=== PATIENT | male | born 1960 | race Two or more races ===

== ENCOUNTER 2017-09-24 16:03 | Emergency (ER) | payer OTHER ==
[2017-09-24 16:19] VITALS: BP 162/95; PULSE 72; TEMP 97; BMI 36.3
--- NOTE | 2017-09-24 16:21 | PDOC ---
Rapid Medical Evaluation Chief Complaint: Pain Time Seen by Provider: 09/24/17 16:16 Medical Evaluation: Allergies Allergy/AdvReac Type Severity Reaction Status Date / Time No Known Allergies Allergy Verified 03/28/16 15:08 09/24/17 16:16 The patient presents with a chief complaint of: Lower abdominal pain. Currently being treated for UTI with levoquin. On day 4 of treatment. States he usualy gets levoquin and he feels better on the second day. Admits frequency and back pain. no fevers chills, denies nausea, vomiting, hematuria, dysuria. I have performed a brief in-person evaluation of this patient; Pertinent physical exam findings: Suprapubic tenderness, No CVA tenderness I have ordered the following: CBC, CMP, UA, UC, The patient will proceed to the ED for further evaluation.
[2017-09-24 17:04] LABS: BASO % 0.3 % (0-2.0); EOS # 0.2 #; EOS % 3.2 % (0-4.5); MCH 29.3 pg (25.7-33.7); MCHC 33.3 g/dl (32.0-35.9); MEAN CELL VOLUME 88.1 fl (80-96); MEAN PLT VOLUME 8.7 fl (7.5-11.1); MONO # 0.5 #; NEUT # 3.9 #; NEUT % 58.9 % (42.8-82.8); PLATELET COUNT 289 K/MM3 (134-434); WHITE BLOOD COUNT 6.6 K/mm3 (4.0-10.0)
--- NOTE | 2017-09-24 17:19 | PDOC ---
History of Present Illness - History of Present Illness Initial Comments: 09/24/17 17:46 The patient is a 57 year old male, with a significant past medical history of hypertension, hyperlipidemia, and prostate surgery x2 (last surgery in 2011 which was 5 years after the first) who presents to the emergency department with suprapubic pain and increased urinary frequency at night despite taking levaquin for 4 days. The patient states he called Dr. Roth 4 days ago regarding his current symptoms, was prescribed levaquin, and state his symptoms have been increasing since last night. He denies chest pain, shortness of breath, headache and dizziness. He denies fever, chills, nausea, vomit, diarrhea and constipation. He denies dysuria, urgency and hematuria. Allergies: NKDA urologist: Dr. Roth <Dora Hoskins - Last Filed: 09/24/17 18:41> <Fabricio Serna - Last Filed: 09/25/17 16:16> - General Chief Complaint: Pain Stated Complaint: ABD PAIN Time Seen by Provider: 09/24/17 16:16 Past History <Dora Hoskins - Last Filed: 09/24/17 18:41> - Past Medical History COPD: No HTN: Yes Hypercholesterolemia: Yes Other medical history: enlarged prostate - Surgical History Appendectomy: Yes - Immunization History Immunization Up to Date: Yes - Suicide/Smoking/Psychosocial Hx Smoking Status: No Smoking History: Never smoked Have you smoked in the past 12 months: No Number of Cigarettes Smoked Daily: 0 Hx Alcohol Use: No Drug/Substance Use Hx: No Substance Use Type: None Hx Substance Use Treatment: No <Fabricio Serna - Last Filed: 09/25/17 16:16> - Past Medical History Allergies/Adverse Reactions: Allergies Allergy/AdvReac Type Severity Reaction Status Date / Time No Known Allergies Allergy Verified 09/24/17 16:19 Home Medications: Ambulatory Orders Amlodipine Besylate [Norvasc -] 10 mg PO DAILY #30 tablet 04/19/14 Aspirin [ASA -] 81 mg PO DAILY #30 tab.chew 04/19/14 Atorvastatin Ca [Lipitor -] 40 mg PO HS #30 tablet 04/19/14 Labetalol HCl [Normodyne -] 100 mg PO BID #60 tablet 04/19/14 Review of Systems - Review of Systems Able to Perform ROS?: Yes Comments:: 09/24/17 17:50 GENERAL/CONSTITUTIONAL: No fever or chills. No weakness. HEAD, EYES, EARS, NOSE AND THROAT: No change in vision. No ear pain or discharge. No sore throat. CARDIOVASCULAR: No chest pain or shortness of breath. RESPIRATORY: No cough, wheezing, or hemoptysis. GASTROINTESTINAL: (+) suprapubic pain. No nausea, vomiting, diarrhea or constipation. GENITOURINARY:(+) increased frequency at night, No dysuria, or change in urination. MUSCULOSKELETAL: No joint or muscle swelling or pain. No neck or back pain. SKIN: No rash NEUROLOGIC: No headache, vertigo, loss of consciousness, or change in strength/ sensation. ENDOCRINE: No increased thirst. No abnormal weight change. HEMATOLOGIC/LYMPHATIC: No anemia, easy bleeding, or history of blood clots. ALLERGIC/IMMUNOLOGIC: No hives or skin allergy. <Dora Hoskins - Last Filed: 09/24/17 18:41> *Physical Exam - Vital Signs Last Vital Signs Temp Pulse Resp BP Pulse Ox 97 F L 72 18 162/95 98 09/24/17 16:17 09/24/17 16:17 09/24/17 16:17 09/24/17 16:17 09/24/17 16:17 - Physical Exam Comments: 09/24/17 17:50 GENERAL: Awake, alert, and fully oriented, in no acute distress HEAD: No signs of trauma EYES: PERRLA, EOMI, sclera anicteric, conjunctiva clear ENT: Auricles normal inspection, hearing grossly normal, nares patent, oropharynx clear without exudates. Moist mucosa NECK: Normal ROM, supple, no lymphadenopathy, JVD, or masses LUNGS: Breath sounds equal, clear to auscultation bilaterally. No wheezes, and no crackles HEART: Regular rate and rhythm, normal S1 and S2, no murmurs, rubs or gallops ABDOMEN: Soft, nontender, normoactive bowel sounds. No guarding, no rebound. No masses EXTREMITIES: Normal range of motion, no edema. No clubbing or cyanosis. No cords, erythema, or tenderness NEUROLOGICAL: Cranial nerves II through XII grossly intact. Normal speech, normal gait SKIN: Warm, Dry, normal turgor, no rashes or lesions noted. <Dora Hoskins - Last Filed: 09/24/17 18:41> - Vital Signs Last Vital Signs Temp Pulse Resp BP Pulse Ox 97 F L 72 18 162/95 98 09/24/17 16:17 09/24/17 16:17 09/24/17 16:17 09/24/17 16:17 09/24/17 16:17 <Fabricio Serna - Last Filed: 09/25/17 16:16> ED Treatment Course - LABORATORY CBC & Chemistry Diagram: 09/24/17 16:25 09/24/17 16:25 <Dora Hoskins - Last Filed: 09/24/17 18:41> - LABORATORY CBC & Chemistry Diagram: 09/24/17 16:25 09/24/17 16:25 <Fabricio Serna - Last Filed: 09/25/17 16:16> *DC/Admit/Observation/Transfer - Attestations Scribe Attestion: 09/24/17 17:50 Documentation prepared by Dora Hoskins, acting as biomedical equipment support specialist for Fabricio Serna DO <Dora Hoskins - Last Filed: 09/24/17 18:41> - Attestations Physician Attestion: 09/24/17 17:19 I, Dr. Fabricio Serna, attest that this document has been prepared under my direction and personally reviewed by me in its entirety. I further attest, that it accurately reflects all work, treatment, procedures and medical decision -making performed by me. <Fabricio Serna - Last Filed: 09/25/17 16:16> Diagnosis at time of Disposition: BPH (benign prostatic hyperplasia) - Discharge Dispostion Disposition: HOME Condition at time of disposition: Stable - Referrals Referrals: Odalis Peacock MD [Staff Physician] - - Patient Instructions Printed Discharge Instructions: DI for Benign Prostatic Hyperplasia Additional Instructions: Please follow up with your urologist as soon as possible
[2017-09-24 17:34] LABS: ALBUMIN 3.4 g/dl (3.4-5.0); ALK PHOS 86 U/L (45-117); ANION GAP 10 (8-16); BILIRUBIN,TOTAL 0.5 mg/dL (0.2-1.0); CALCIUM 8.8 mg/dL (8.5-10.1); CO2 25 mmol/L (21-32); CREATININE 1.1 mg/dL (0.7-1.3); GLUCOSE,RANDOM 169 mg/dL (74-106); SGPT/ALT 279 U/L (12-78); TOT PROT 7.2 g/dl (6.4-8.2)
[2017-09-24 18:00] LABS: SGOT/AST 227 U/L (15-37)
[2017-09-24 18:17] LABS: URINE APPEARANCE CLEAR; URINE BILIRUBIN NEGATIVE (NEGATIVE); URINE BLOOD NEGATIVE (NEGATIVE); URINE COLOR YELLOW; URINE GLUCOSE (UA) 1+ (NEGATIVE); URINE KETONE NEGATIVE (NEGATIVE); URINE LEUK ESTERASE NEGATIVE (NEGATIVE); URINE NITRITE NEGATIVE (NEGATIVE); URINE UROBILINOGEN NEGATIVE mg/dL (0.2-1.0)
[2017-09-24 20:06] LABS: URINE PROTEIN 1+ (NEGATIVE)
[2017-09-24] MEDS ORDERED: traMADol HCL 50 MG TABLET PO ONE (21:07)
--- NOTE | 2017-09-24 21:10 | PDOC ---
*Physical Exam - Vital Signs Last Vital Signs Temp Pulse Resp BP Pulse Ox 97 F L 72 18 162/95 98 09/24/17 16:17 09/24/17 16:17 09/24/17 16:17 09/24/17 16:17 09/24/17 16:17 ED Treatment Course - LABORATORY CBC & Chemistry Diagram: 09/24/17 16:25 09/24/17 16:25 - ADDITIONAL ORDERS Additional order review: Laboratory Results 09/24/17 09/24/17 16:25 16:20 Sodium 138 Potassium 4.1 Chloride 103 Carbon Dioxide 25 Anion Gap 10 BUN 24 H Creatinine 1.1 D Creat Clearance w eGFR > 60 Random Glucose 169 H D Calcium 8.8 Total Bilirubin 0.5 D AST 227 H D ALT 279 H D Alkaline Phosphatase 86 D Total Protein 7.2 Albumin 3.4 Urine Color Yellow Urine Appearance Clear Urine pH 5.0 D Ur Specific [place] 1.024 Urine Protein 1+ H Urine Glucose (UA) 1+ H Urine Ketones Negative Urine Blood Negative Urine Nitrite Negative Urine Bilirubin Negative Urine Urobilinogen Negative 09/24/17 16:25 RBC 5.39 MCV 88.1 MCHC 33.3 RDW 14.0 MPV 8.7 Neutrophils % 58.9 D Lymphocytes % 29.7 D Monocytes % 7.9 Eosinophils % 3.2 D Basophils % 0.3 *DC/Admit/Observation/Transfer Diagnosis at time of Disposition: BPH (benign prostatic hyperplasia) - Discharge Dispostion Disposition: HOME Condition at time of disposition: Stable Admit: No - Prescriptions Prescriptions: Tramadol HCl [Ultram -] 50 mg PO Q8H #30 tablet MDD 4 - Referrals Referrals: Odalis Peacock MD [Staff Physician] - - Patient Instructions Printed Discharge Instructions: DI for Benign Prostatic Hyperplasia Additional Instructions: Please follow up with your urologist as soon as possible - Post Discharge Activity
[2017-09-24] MEDS ORDERED: traMADol HCL 50 MG TABLET ONE (21:19)
[2017-09-24 21:34] LABS: URINE MUCUS RARE; URINE RBC 1 /hpf (0-3); URINE WBC 1 /hpf (3-5)
[2017-09-24 23:23] LABS: URINE LEUK ESTERASE Negative (NEGATIVE)
== END 2017-09-24 21:23 | disposition home or self-care (01) ==
LOC: JER 16:03
DX: N40.0 Benign prostatic hyperplasia without lower urinary tract symptoms (principal); I10 Essential (primary) hypertension; E78.5 Hyperlipidemia, unspecified
CPT/HCPCS: 36415; 80053; 81003; 81015; 85025; 87086; 99282-25

== ENCOUNTER 2018-02-23 07:12 | Day surgery (SDC) | payer OTHER ==
[2018-02-23 07:45] VITALS: BMI 36.3
[2018-02-23] MEDS ORDERED: MIDAZOLAM HCL 5 MG/5 ML - 5 ML VIAL IVPB ONE (08:29)
[2018-02-23 09:17] VITALS: TEMP 97.8
[2018-02-23 15:52] VITALS: BP 150/98; PULSE 88
--- NOTE | 2018-04-12 16:39 | PATH ---
Surgical Pathology Report Patient Name: LAURI JAMESON [facility]. Rec. #: [id number] /Age/Gender: 1960 (Age: 57) / M Account: [id number] Location: U-ENDOSCOPY Taken: 02/23/2018 Received: 02/23/2018 Reported: 03/02/2018 Physicians: Mo Mcgee M.D. 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 TRICHROME STAIN SHOWS PATCHY PERIVENULAR AND PERICELLULAR FIBROSIS. IRON STAIN IS NEGATIVE FOR SIDEROSIS, SEE COMMENT. PAS AND PAS WITH DIASTASE STAINS ARE NEGATIVE FOR ALPHA-1 ANTITRYPSIN GLOBULES. NEGATIVE FOR CHRONIC HEPATITIS, CHOLESTASIS, CHOLANGITIS/BILE DUCT INJURY, GRANULOMAS, OR MALIGNANCY. COMMENT: Steatohepatitis may be associated with diabetes mellitus, metabolic symptoms, obesity medications, alcohol use, etc. Clinical correlation recommended. Although the iron stain appears negative for siderosis, no control was received for evaluation. The possibility of a false negative stain cannot be excluded. Reticulin stain is non-contributory. The reticulum control tissues stained appropriately, but the stain failed on the actual specimen tissue. Note: The above diagnosis reflects Dr. Frances Cobian's opinions, from Department of Pathology, [place] [address]. The iron stain on the liver was evaluated with proper control. It is negative for siderosis. Electronically Signed Rashmi Sinha M.D. Addendum Reported: 03/06/2018 Addendum Diagnosis Fibrosis grade 1 (Brunt Criteria). Reticulum stain was repeated and showed an intact sinusoidal architecture. Rashmi Sinha M.D. Gross Description Received in formalin labeled "liver biopsy," are 3 thompson, cylindrical portions of soft tissue ranging from 0.6-1.8 cm in length and averaging 0.1 cm in diameter. The specimens are submitted in toto in one cassette. 02/23/201802/23/2018
== END 2018-02-23 12:10 | disposition home or self-care (01) ==
LOC: JASU-ENDO 07:12
PROVIDERS: ATTEND Internal Medicine Gastroenterology
PROC: 0FB13ZX Excision of Right Lobe Liver, Percutaneous Approach, Diagnostic (ICD-10-PCS; principal; 2018-02-23 08:00)
DX: K75.81 Nonalcoholic steatohepatitis (NASH) (principal)
CPT/HCPCS: 76942-TC; 82962; 88305-TC; 88313-TC

== ENCOUNTER 2021-07-12 06:28 | Observation (INO) | payer BC, OTHER ==
[2021-07-12 06:53] VITALS: BMI 32.1
[2021-07-12 09:36] LABS: BASO % 0.4 % (0-2.0); EOS % 3.8 % (0-4.5); HEMATOCRIT 43.9 % (35.4-49); HEMOGLOBIN 14.5 GM/dL (11.7-16.9); LYMPH % 33.4 % (8-40); MCH 28.5 pg (25.7-33.7); MCHC 33.1 g/dl (32.0-35.9); MEAN CELL VOLUME 86.2 fl (80-96); MEAN PLT VOLUME 8.5 fl (7.5-11.1); MONO % 7.8 % (3.8-10.2); NEUT % 54.6 % (42.8-82.8); PLATELET COUNT 216 10^3/uL (134-434); RDW 13.9 % (11.9-15.9); WHITE BLOOD COUNT 7.6 K/mm3 (4.0-10.0)
[2021-07-12 09:55] LABS: CHLORIDE 106 mmol/L (98-107); SODIUM 140 mmol/L (136-145)
[2021-07-12 09:58] LABS: ALBUMIN 3.4 g/dl (3.4-5.0); ANION GAP 8 MMOL/L (8-16); CALCIUM 8.4 mg/dL (8.5-10.1); CO2 26 mmol/L (21-32)
[2021-07-12 09:59] LABS: BLOOD UREA NITROGEN 24.3 mg/dL (7-18)
[2021-07-12 10:00] LABS: GLUCOSE,RANDOM 80 mg/dL (74-106)
[2021-07-12 10:02] LABS: CREATININE 1.1 mg/dL (0.55-1.3); SGOT/AST 41 U/L (15-37); SGPT/ALT 70 U/L (13-61)
[2021-07-12 10:03] LABS: BILIRUBIN,TOTAL 0.6 mg/dL (0.2-1)
[2021-07-12 10:04] LABS: ALK PHOS 64 U/L (45-117)
[2021-07-12] MEDS ORDERED: SODIUM CHLORIDE 500 ML IV STA (13:47)
[2021-07-12] MEDS ORDERED: METHYL SALICYLATE/MENTHOL OINT 30 GM TUBE TP SCH (16:38)
[2021-07-12 17:45] VITALS: BP 137/93; PULSE 67; TEMP 97.6
[2021-07-13] MEDS ORDERED: amLODIPine BESYLATE 10 MG TABLET (FP) PO SCH (10:00)
[2021-07-13] MEDS ORDERED: LISINOPRIL 20 MG TABLET PO SCH (10:00)
[2021-07-13] MEDS ORDERED: ASPIRIN COATED 81 MG TABLET.EC PO SCH (10:00)
[2021-07-13] MEDS ORDERED: PATIENT'S OWN MEDICATION (NON-FORMULARY) (Amlodipine Besylate/Benazepril [Lotrel 10-20 Mg PO SCH (10:00)
[2021-07-13] MEDS ORDERED: ENOXAPARIN NA (PORCINE) 40 MG/0.4 ML DISP.SYRIN SQ SCH (10:00)
== END 2021-07-12 19:00 | disposition home or self-care (01) ==
LOC: JER 06:28 → JERBED 12:07 → UNDOADMOB 12:07 → INTOOBSV 13:44 → OBSVTOIN 13:44 → JERBED 14:45
PROVIDERS: ADMIT Internal Medicine; ATTEND Internal Medicine
PROC: 3E0337Z Introduction of Electrolytic and Water Balance Substance into Peripheral Vein, Percutaneous Approach (ICD-10-PCS; principal; 2021-07-12)
DX: R07.89 Other chest pain (principal); E11.9 Type 2 diabetes mellitus without complications; I10 Essential (primary) hypertension; E66.9 Obesity, unspecified; Z68.32 Body mass index [BMI] 32.0-32.9, adult; E78.5 Hyperlipidemia, unspecified; N40.0 Benign prostatic hyperplasia without lower urinary tract symptoms; M94.0 Chondrocostal junction syndrome [Tietze]; N41.9 Inflammatory disease of prostate, unspecified
CPT/HCPCS: 36415; 71046-TC-FY; 71275-TC; 80053; 82550; 82553; 84484; 85025; 86038; 93005; 93010; 93306-TC; 99285-25; C9803; G0378; Q9967; U0003; U0005

== ENCOUNTER 2021-12-21 12:16 | Emergency (ER) | payer BC, OTHER ==
[2021-12-21 12:33] VITALS: TEMP 98; BMI 33.6
[2021-12-21] MEDS ORDERED: amLODIPine BESYLATE 10 MG TABLET (FP) PO ONE (12:53)
[2021-12-21] MEDS ORDERED: amLODIPine BESYLATE 10 MG TABLET (FP) ONE (12:59)
[2021-12-21] MEDS ORDERED: ACETAMINOPHEN 500 MG TABLET (FP) PO ONE (12:59)
[2021-12-21] MEDS ORDERED: ACETAMINOPHEN 325 MG TABLET (FP) ONE (13:00)
[2021-12-21 13:59] VITALS: BP 172/97; PULSE 71
[2021-12-21 14:11] LABS: BASO % 0.4 % (0-2.0); EOS % 2.1 % (0-4.5); HEMATOCRIT 42.5 % (35.4-49); HEMOGLOBIN 13.9 GM/dL (11.7-16.9); LYMPH % 42.8 % (8-40); MCH 28.2 pg (25.7-33.7); MCHC 32.7 g/dl (32.0-35.9); MEAN CELL VOLUME 86.2 fl (80-96); MEAN PLT VOLUME 8.5 fl (7.5-11.1); MONO % 8.1 % (3.8-10.2); NEUT % 46.6 % (42.8-82.8); PLATELET COUNT 266 10^3/uL (134-434); RBC 4.93 M/mm3 (4.00-5.60); RDW 13.1 % (11.9-15.9); WHITE BLOOD COUNT 5.8 K/mm3 (4.0-10.0)
[2021-12-21 14:16] LABS: EPI CELLS 1 /uL (0-25.1); HYALINE CASTS 0 /uL (0-3.1); URINE APPEARANCE CLEAR; URINE BACTERIA 4 /uL (0-1359); URINE BILIRUBIN NEGATIVE (NEGATIVE); URINE COLOR YELLOW; URINE GLUCOSE (UA) NEGATIVE (NEGATIVE); URINE KETONE NEGATIVE (NEGATIVE); URINE LEUK ESTERASE NEGATIVE (NEGATIVE); URINE NITRITE NEGATIVE (NEGATIVE); URINE PROTEIN 2+ (NEGATIVE); URINE RBC 6 /uL (0-23.9); URINE UROBILINOGEN 0.2 mg/dL (0.2-1.0); URINE WBC 3 /uL (0-25.8)
[2021-12-21 14:30] LABS: ALBUMIN 3.7 g/dl (3.4-5.0); CALCIUM 9.2 mg/dL (8.5-10.1)
[2021-12-21 14:34] LABS: CREATININE 1.1 mg/dL (0.55-1.3)
[2021-12-21 14:35] LABS: BILIRUBIN,TOTAL 0.3 mg/dL (0.2-1); TOT PROT 7.2 g/dl (6.4-8.2)
== END 2021-12-21 15:24 | disposition home or self-care (01) ==
LOC: JER 12:16
DX: R30.0 Dysuria (principal); R31.9 Hematuria, unspecified
CPT/HCPCS: 36415; 80053; 81003; 84153; 85025; 87086; 99283-25

== ENCOUNTER 2022-07-10 04:09 | Day surgery (SDC) | payer BC, OTHER ==
[2022-07-08 15:11] VITALS: BMI 34.0
[2022-07-10] MEDS ORDERED: MIDAZOLAM HCL 2 MG/2 ML SINGLE DOSE VIAL ONE (12:17)
[2022-07-10] MEDS ORDERED: LIDOCAINE HCL 2% JELLY 10 ML CARTRIDGE ONE (12:33)
[2022-07-10] MEDS ORDERED: ceFAZolin SODIUM 1 GM VIAL IVPB ONE (12:37)
[2022-07-10] MEDS ORDERED: PROPOFOL 20 ML ONE (12:45)
[2022-07-10 13:58] VITALS: RESP 18
[2022-07-10 15:56] VITALS: TEMP 98.2
[2022-07-10 16:02] VITALS: BP 146/98; PULSE 82
== END 2022-07-10 16:00 | disposition home or self-care (01) ==
LOC: JASU-SURG 04:09
PROVIDERS: ATTEND Urology
PROC: 0TCB8ZZ Extirpation of Matter from Bladder, Via Natural or Artificial Opening Endoscopic (ICD-10-PCS; principal; 2022-07-10 13:00)
DX: N21.1 Calculus in urethra (principal); N21.0 Calculus in bladder; I10 Essential (primary) hypertension; E11.9 Type 2 diabetes mellitus without complications
CPT/HCPCS: 82962; 94760

== ENCOUNTER 2023-01-28 09:37 | Emergency (ER) | payer BC, OTHER ==
[2023-01-28 09:43] VITALS: TEMP 97.9; BMI 33.9
[2023-01-28] MEDS ORDERED: FAMOTIDINE 20 MG/50 ML IVPB 20 MG/50 ML MG IVPB ONE ×2 (10:27→10:40)
[2023-01-28] MEDS ORDERED: ACETAMINOPHEN 1000 MG/100 ML BAG IVPB ONE (10:27)
[2023-01-28] MEDS ORDERED: ONDANSETRON 4 MG/2 ML VIAL IVPUSH ONE (10:27)
[2023-01-28] MEDS ORDERED: SODIUM CHLORIDE 1,000 ML IV STA (10:27)
[2023-01-28] MEDS ORDERED: ONDANSETRON 4 MG/2 ML VIAL ONE (10:40)
[2023-01-28] MEDS ORDERED: ACETAMINOPHEN INJECTION 100 ML IVPB ONE (10:40)
[2023-01-28 11:02] LABS: BASO % 0.3 % (0-2.0); EOS % 0.4 % (0-4.5); HEMATOCRIT 47.6 % (35.4-49); HEMOGLOBIN 16.5 GM/dL (11.7-16.9); MCH 29.5 pg (25.7-33.7); MCHC 34.7 g/dl (32.0-35.9); MEAN CELL VOLUME 85.1 fl (80-96); MEAN PLT VOLUME 8.5 fl (7.5-11.1); MONO % 5.8 % (3.8-10.2); NEUT % 89.5 % (42.8-82.8); PLATELET COUNT 314 10^3/uL (134-434); RDW 13.8 % (11.9-15.9); WHITE BLOOD COUNT 18.9 K/mm3 (4.0-10.0)
[2023-01-28 11:23] LABS: POTASSIUM 3.7 mmol/L (3.5-5.1)
[2023-01-28 11:26] LABS: CALCIUM 9.9 mg/dL (8.5-10.1)
[2023-01-28 11:27] LABS: ALBUMIN 4.1 g/dl (3.4-5.0); BLOOD UREA NITROGEN 21.5 mg/dL (7-18)
[2023-01-28 11:30] LABS: BILIRUBIN,TOTAL 0.8 mg/dL (0.2-1)
[2023-01-28 11:31] LABS: CREATININE 1.6 mg/dL (0.55-1.3)
[2023-01-28 12:56] VITALS: PULSE 89
[2023-01-28 16:09] VITALS: BP 142/95; RESP 16
[2023-01-28 17:25] LABS: BASO % 0.2 % (0-2.0); EOS % 0.3 % (0-4.5); HEMATOCRIT 44.5 % (35.4-49); HEMOGLOBIN 14.9 GM/dL (11.7-16.9); LYMPH % 12.6 % (8-40); MCH 28.2 pg (25.7-33.7); MCHC 33.4 g/dl (32.0-35.9); MEAN CELL VOLUME 84.6 fl (80-96); MEAN PLT VOLUME 8.4 fl (7.5-11.1); MONO % 5.6 % (3.8-10.2); NEUT % 81.3 % (42.8-82.8); PLATELET COUNT 334 10^3/uL (134-434); RBC 5.26 M/mm3 (4.00-5.60); RDW 13.8 % (11.9-15.9); WHITE BLOOD COUNT 14.1 K/mm3 (4.0-10.0)
== END 2023-01-28 18:36 | disposition home or self-care (01) ==
LOC: JER 09:37
PROC: 3E033GC Introduction of Other Therapeutic Substance into Peripheral Vein, Percutaneous Approach (ICD-10-PCS; principal; 2023-01-28)
PROC: 3E033GC Introduction of Other Therapeutic Substance into Peripheral Vein, Percutaneous Approach (ICD-10-PCS; 2023-01-28)
PROC: 3E033GC Introduction of Other Therapeutic Substance into Peripheral Vein, Percutaneous Approach (ICD-10-PCS; 2023-01-28)
DX: R11.2 Nausea with vomiting, unspecified (principal); R19.7 Diarrhea, unspecified; R10.84 Generalized abdominal pain; Z20.822 Contact with and (suspected) exposure to COVID-19
CPT/HCPCS: 36415; 74176-TC; 76705-TC; 80053; 83690; 84484; 85025; 93005; 93010; 99285-25; C9803-CS; U0003; U0005

== ENCOUNTER 2024-03-01 20:51 | Emergency (ER) | payer BC, OTHER ==
[2024-03-01 20:55] VITALS: BMI 33.3
[2024-03-01 22:23] LABS: BASO % 0.4 % (0-2.0); EOS % 5.3 % (0-4.5); HEMATOCRIT 40.4 % (35.4-49); HEMOGLOBIN 13.8 GM/dL (11.7-16.9); LYMPH % 33.7 % (8-40); MCH 29.1 pg (25.7-33.7); MCHC 34.2 g/dl (32.0-35.9); MEAN PLT VOLUME 7.8 fl (7.5-11.1); MONO % 9.9 % (3.8-10.2); NEUT % 50.7 % (42.8-82.8); PLATELET COUNT 378 10^3/uL (134-434); RBC 4.75 M/mm3 (4.00-5.60); RDW 13.7 % (11.9-15.9); WHITE BLOOD COUNT 7.4 K/mm3 (4.0-10.0)
[2024-03-01 22:24] LABS: EPI CELLS 2 /uL (0-25.1); HYALINE CASTS 0 /uL (0-3.1); PH,URINE 5.5 (5.0-8.0); URINE APPEARANCE CLOUDY; URINE BACTERIA 5 /uL (0-1359); URINE BILIRUBIN NEGATIVE (NEGATIVE); URINE COLOR ORANGE; URINE GLUCOSE (UA) 2+ (NEGATIVE); URINE KETONE TRACE (NEGATIVE); URINE LEUK ESTERASE TRACE (NEGATIVE); URINE NITRITE NEGATIVE (NEGATIVE); URINE PROTEIN 2+ (NEGATIVE); URINE RBC 18589 /uL (0-23.9); URINE UROBILINOGEN 0.2 mg/dL (0.2-1.0); URINE WBC 33 /uL (0-25.8)
[2024-03-01 22:38] LABS: INR 0.94 (0.83-1.09); PROTHROMBIN TIME (PATIENT) 10.8 SEC (9.7-13.0)
[2024-03-01 22:41] LABS: ACTIVATED PTT 32.4 SECONDS (25.2-36.5); POTASSIUM 4.1 mmol/L (3.5-5.1)
[2024-03-01 22:43] LABS: ALBUMIN 3.7 g/dl (3.4-5.0); CALCIUM 9.2 mg/dL (8.5-10.1); MAGNESIUM 2.1 mg/dL (1.8-2.4)
[2024-03-01 22:44] LABS: BLOOD UREA NITROGEN 31.1 mg/dL (7-18)
[2024-03-01 22:46] LABS: CREATININE 1.5 mg/dL (0.55-1.3)
[2024-03-01] MEDS ORDERED: PIPERACILLIN/TAZOB 4.5 GM 4.5 GM/100 ML BAG IVPB ONE (22:46)
[2024-03-01 22:48] LABS: BILIRUBIN,TOTAL 0.4 mg/dL (0.2-1); TOT PROT 7.2 g/dl (6.4-8.2)
[2024-03-01] MEDS ORDERED: ACETAMINOPHEN INJECTION 100 ML IVPB ONE (22:51)
[2024-03-01] MEDS: ACETAMINOPHEN 1000 MG/100 ML BAG IVPB ONE (22:56)
[2024-03-01 23:40] LABS: HIV INTERPRETATION NEGATIVE (NEGATIVE)
[2024-03-02 02:40] VITALS: BP 142/81; PULSE 79; RESP 17; TEMP 98.1
== END 2024-03-02 02:40 | disposition home or self-care (01) ==
LOC: JER 20:51
PROC: 3E033NZ Introduction of Analgesics, Hypnotics, Sedatives into Peripheral Vein, Percutaneous Approach (ICD-10-PCS; principal; 2024-03-01)
DX: R31.9 Hematuria, unspecified (principal); R10.9 Unspecified abdominal pain; R07.89 Other chest pain; R06.02 Shortness of breath; N50.819 Testicular pain, unspecified; Z20.822 Contact with and (suspected) exposure to COVID-19
CPT/HCPCS: 0241U-QW; 36415; 71046-TC-FY; 76856-TC; 80053; 81003; 83735; 84484; 85025; 85610; 85730; 87086; 87389; 93005; 93010; 99285-25; J0131

== ENCOUNTER 2025-03-01 11:41 | Emergency (ER) | payer BC, OTHER ==
[2025-03-01 11:54] VITALS: TEMP 99.9; BMI 32.8
[2025-03-01] MEDS ORDERED: ASPIRIN 81 MG CHEWABLE TABLETS ONE (12:35)
[2025-03-01 12:42] LABS: HEMATOCRIT 44.4 % (40.1-51.0); HEMOGLOBIN 14.3 g/dL (13.7-17.5); MCHC 32.2 g/dl (32.3-36.5); MEAN CELL VOLUME 85.2 fl (79.0-92.2); MEAN PLT VOLUME 9.8 fl (9.4-12.4); PLATELET COUNT 352 x10^3/uL (163-337); RDW 13.4 % (12.2-16.4)
[2025-03-01] MEDS: SODIUM CHLORIDE 1,000 ML IV STA (12:42)
[2025-03-01] MEDS: ASPIRIN 81 MG CHEWABLE TABLETS PO ONE (12:42)
[2025-03-01 12:52] LABS: PROTHROMBIN TIME (PATIENT) 10.9 SEC (9.7-13.0)
[2025-03-01 13:07] LABS: POTASSIUM 4.3 mmol/L (3.5-5.1)
[2025-03-01 13:10] LABS: ALBUMIN 3.8 g/dl (3.4-5.0); BLOOD UREA NITROGEN 17.2 mg/dL (7-18); CALCIUM 9.8 mg/dL (8.5-10.1); MAGNESIUM 1.9 mg/dL (1.8-2.4)
[2025-03-01 13:13] LABS: CREATININE 1.3 mg/dL (0.55-1.3)
[2025-03-01 13:14] LABS: BILIRUBIN,TOTAL 0.5 mg/dL (0.2-1)
[2025-03-01 13:15] LABS: TOT PROT 7.4 g/dl (6.4-8.2)
[2025-03-01 14:31] VITALS: BP 133/83; PULSE 76; RESP 20
== END 2025-03-01 14:39 | disposition home or self-care (01) ==
LOC: JER 11:41 → JERFT 11:41 → JER 14:39
PROC: 3E0337Z Introduction of Electrolytic and Water Balance Substance into Peripheral Vein, Percutaneous Approach (ICD-10-PCS; principal; 2025-03-01)
DX: U07.1 COVID-19 (principal); R07.2 Precordial pain; R50.9 Fever, unspecified; R09.81 Nasal congestion; R05.9 Cough, unspecified; R06.02 Shortness of breath
CPT/HCPCS: 0241U-QW; 36415; 71046-TC-FY; 80053; 83735; 84484; 85027; 85610; 85730; 93005; 93010; 99285-25